=== PATIENT | female | born 1980 | race Caucasian/White ===

== ENCOUNTER 2017-03-09 11:32 | Emergency (ER) | payer BC ==
--- NOTE | 2017-03-09 11:49 | ED.PDOC ---
History of Present Illness - General Chief Complaint: General Stated Complaint: nausea/vomiting Time Seen by Provider: 03/09/17 11:48 Information Source: patient Exam Limitations: no limitations - History of Present Illness Initial Comments: Brandi Jeong 37 y/o female with laparoscopic/vaginal hysterectomy with uncomplicated post op course stated that she had multiple episodes of nausea / vomiting at home this am.On Arrival at er presently asymptomatic but receiving coordinator advised her to come to er .Also stated that she gained 16 lbs in 10 days. Abdominal Pain Onset Location: other - post op pain Pain Radiation: no radiation Quality: mild Improving Factors: nothing Worsening Factors: nothing Associated Symptoms: nausea/vomiting Review of Systems - Review of Systems Constitutional: States: no symptoms reported EENTM: States: no symptoms reported Respiratory: States: no symptoms reported Cardiology: States: no symptoms reported Gastrointestinal/Abdominal: States: see HPI Genitourinary: States: see HPI Family Medical History - Family History Father Hx Family Hypertension: Yes Hx Family Cancer: Yes - colon/prostate Physical Exam - Physical Exam General Appearance: Alert, No apparent distress Eyes, Ears, Nose, Throat Exam: PERRL/EOMI, normal ENT inspection, pharynx normal Neck: non-tender, full range of motion, supple Respiratory: chest non-tender, lungs clear Cardiovascular/Chest: normal peripheral pulses, regular rate, rhythm, no murmur Peripheral Pulses: No deficit Gastrointestinal/Abdominal: normal bowel sounds, soft, no organomegaly, tenderness - post op, other - post op incision clear/ intact Back Exam: normal inspection, no CVA tenderness Extremity: non-tender, no pedal edema, no calf tenderness Neurologic: alert, oriented x 3 Progress - Progress Progress: 03/09/17 13:11 Vital Signs - 8 hr 03/09/17 11:40 Temperature 94 F L Pulse Rate [ 77 pulse ox] Respiratory 20 Rate Blood Pressure 134/88 [left brachial] O2 Sat by Pulse 94 L Oximetry - Results/Orders Results/Orders: Laboratory Tests 03/09/17 03/09/17 03/09/17 12:05 12:05 12:05 WBC 10.8 RBC 4.06 L Hgb 12.4 Hct 37.4 MCV 92.3 MCH 30.7 MCHC 33.2 RDW 14.6 H Plt Count 138 MPV 11.4 H Absolute Neuts (auto) 10.20 H Absolute Lymphs (auto) 0.30 L Absolute Monos (auto) 0.30 Absolute Eos (auto) 0.00 Absolute Basos (auto) 0.00 Neutrophils % 94.1 H Lymphocytes % 2.8 L Monocytes % 2.8 Eosinophils % 0.0 L Basophils % 0.3 Sodium 140 Potassium 4.2 Chloride 107 Carbon Dioxide 24 Anion Gap 13.2 BUN 14 Creatinine 1.70 H BUN/Creatinine Ratio 8.2 L Random Glucose 110 H Serum Osmolality 280.5 Calcium 9.0 Total Bilirubin 0.9 AST 42 ALT 28 Alkaline Phosphatase 55 Serum Total Protein 6.7 Albumin 3.8 Globulin 2.9 Albumin/Globulin Ratio 1.3 Lipase 19 L TSH 0.33 L Urine Color Urine Appearance Urine pH Ur Specific [place] Urine Protein Urine Glucose (UA) Urine Ketones Urine Blood Urine Nitrite Urine Bilirubin Urine Urobilinogen Ur Leukocyte Esterase Urine RBC Urine WBC Ur Epithelial Cells Urine Bacteria 03/09/17 12:22 WBC RBC Hgb Hct MCV MCH MCHC RDW Plt Count MPV Absolute Neuts (auto) Absolute Lymphs (auto) Absolute Monos (auto) Absolute Eos (auto) Absolute Basos (auto) Neutrophils % Lymphocytes % Monocytes % Eosinophils % Basophils % Sodium Potassium Chloride Carbon Dioxide Anion Gap BUN Creatinine BUN/Creatinine Ratio Random Glucose Serum Osmolality Calcium Total Bilirubin AST ALT Alkaline Phosphatase Serum Total Protein Albumin Globulin Albumin/Globulin Ratio Lipase TSH Urine Color Yellow Urine Appearance Clear Urine pH 7.0 Ur Specific [place] 1.010 Urine Protein Negative Urine Glucose (UA) Negative Urine Ketones Negative Urine Blood Small H Urine Nitrite Negative Urine Bilirubin Negative Urine Urobilinogen 0.2 Ur Leukocyte Esterase Negative Urine RBC 0 Urine WBC 0 Ur Epithelial Cells 3-5 Urine Bacteria 0 - EKG/XRAY/CT XRAY: abdomen - heart size normal,non specific bowel gas Departure - Departure Clinical Impression: Low thyroid stimulating hormone (TSH) level, Renal insufficiency Nausea & vomiting Qualifiers: Vomiting type: unspecified Vomiting Intractability: non-intractable Qualified Code(s): R11.2 - Nausea with vomiting, unspecified Time of Disposition: 14:32 Disposition: Discharge to Home or Self Care Condition: Fair Instructions: Hyperthyroidism, DI for Hyperthyroidism, DI for Vomiting -- Adult , Nausea and Vomiting-Adult Diet: low fat, low cholesterol, other - small frequent meal avoid greasy ,spicy, dairy foods Prescriptions: Ondansetron [Ondansetron Odt] 4 mg PO Q8HRS PRN #14 tab PRN Reason: Nausea/Vomiting Home Medications: Ambulatory Orders Ciprofloxacin [Cipro] 500 mg PO BID 03/09/17 HYDROcodone 5MG/APAP 325MG [[place] 5/325] 1 ea PO Q4H PRN 03/09/17 Ibuprofen 600 mg PO Q6H PRN 03/09/17 Ondansetron [Ondansetron Odt] 4 mg PO Q8HRS PRN #14 tab 03/09/17 Additional Instructions: FOLLOW UP WITH PRIMARY MD 03/10/2017 call for appointment FOR REFERRAL TO [facility] [employer];No NSAIDS-avoid ibuprofen,aleve
[2017-03-09] MEDS ORDERED: SODIUM CHLORIDE 0.9% 1000ML 1,000 ML IVS ONE (11:50)
[2017-03-09] MEDS ORDERED: ONDANSETRON INJ 4 MG/2 ML VIAL IV ONE (11:59)
--- NOTE | 2017-03-09 13:08 | RAD ---
3 view abdomen. Indication: vomiting Comparison: None. Impression: Heart size normal. Lungs clear. At the right upper quadrant there is lucency underlying the diaphragm which is favored to reflect a portion of aerated bowel, however free air is not excluded and could give this appearance. Decubitus imaging versus CT recommended for better evaluation. Surgical clip noted in the pelvis. Bowel gas pattern nonspecific. No abnormal calcifications. No acute osseous abnormality. Electronically signed by: Eb Marin MD 03/09/2017 1:07 PM CDT
[2017-03-09] MEDS ORDERED: LACTATED RINGERS 1,000 ML IVS ONE (13:12)
[2017-03-09 13:33] VITALS: BP 140/90
[2017-03-09 15:09] VITALS: TEMP 99; O2SAT 98
== END 2017-03-09 15:09 | disposition home or self-care (01) ==
LOC: ER 11:32
DX: R94.6 Abnormal results of thyroid function studies (principal); N28.9 Disorder of kidney and ureter, unspecified; R11.2 Nausea with vomiting, unspecified
CPT/HCPCS: 36415; 74020; 80053; 81001; 83690; 83880; 84443; 85025; J7030; J7120